=== PATIENT | male | born 1975 | race Caucasian/White ===

== ENCOUNTER 2021-05-27 02:54 | Emergency (ER) | payer SELFPAY ==
[~2021-05-27] VITALS: Ht 165.1 cm; Wt 67.7 kg
--- OUTSIDE RECORDS SUMMARY | 2021-05-27 02:59 | CCD ---
Author Author [facility] Organization [facility] Address Unknown Phone Unavailable Support Name Relationship Address Phone [employer] Next Of Kin [address] [facility] [place] [address] [place] Next Of Kin Unknown Unavailable [address] [place] [address] SELF EMPLOYED [place] [address] Unavailable PAMELA CANALES Next Of Kin [address] [place], [place] [id number] PAMELA CANALES ECON Unknown Unavailable PAMELA QUEZADA ECON [address] [address] Re-disclosure Warning The records that you are about to access may contain information from federally-assisted alcohol or drug abuse programs. If such information is present, then the following federally mandated warning applies: This information has been disclosed to you from records protected by federal confidentiality rules (42 CFR part 2). The federal rules prohibit you from making any further disclosure of this information unless further disclosure is expressly permitted by the written consent of the person to whom it pertains or as otherwise permitted by 42 CFR part 2. A general authorization for the release of medical or other information is NOT sufficient for this purpose. The Federal rules restrict any use of the information to criminally investigate or prosecute any alcohol or drug abuse patient.The records that you are about to access may contain highly sensitive health information, the redisclosure of which is protected by Article 27-F of the [facility] Public Health law. If you continue you may have access to information: Regarding HIV / AIDS; Provided by facilities licensed or operated by the [facility] Office of Mental Health; or Provided by the [facility] Office for People With Developmental Disabilities. If such information is present, then the following [facility] mandated warning applies: This information has been disclosed to you from confidential records which are protected by state law. State law prohibits you from making any further disclosure of this information without the specific written consent of the person to whom it pertains, or as otherwise permitted by law. Any unauthorized further disclosure in violation of state law may result in a fine or mcc sentence or both. A general authorization for the release of medical or other information is NOT sufficient authorization for further disc losure. Medications No Information Insurance Providers Payer name Policy type / Coverage type Policy ID Covered alliance party ID Covered alliance party's relationship to [place] Policy Elliott Plan Information [employer] [place] MED[place] [id number] 0 [id number] RAHEEL [id number] SP [id number] [place] Other 0 [id number] Self 0 [place] Other 0 [id number] Self 0 RAHEEL CARE HEA [id number] S [id number] RAHEEL CARE HEA [id number] S [id number] [place] Other 0 [id number] Self 0 SELF PAY UNAVAILABLE SP UNAVAILA BLE ID IDENTIFICATION [id number] Other Insurance [id number] [place] [employer] [id number] Commercial Insurance [id number] ID IDENTIFICATION [id number] Other Insurance [id number] Problems, Conditions, and Diagnoses No Information Surgeries/Procedures No Information Results ID Date Data Source 04/24/2021 12:00:00 AM EDT [facility] Name Value Range Interpretation Code Description Data Mini rce(s) Supporting Document(s) NAAT POSITIVE [facility] This lab was ordered by [facility] are and reported by [facility]. ID Date Data Source 06/14/2020 12:00:00 AM EST [facility] Name Value Range Interpretation Code Description Data Mini rce(s) Supporting Document(s) 2019 Novel Coronavirus RNA Negative [facility] This lab was ordered by [facility] are and reported by [facility]. Procedure Social History No Information
[2021-05-27] MEDS ORDERED: ONDANSETRON 4 MG TAB PO ONE (04:00)
[2021-05-27] MEDS ORDERED: MORPHINE 4 MG/ML 1ML VIAL/SYRINGE (J2270) IM ONE (04:00)
[2021-05-27] MEDS ORDERED: HYDR-3713 PO ×2 (04:08→04:13)
--- OUTSIDE RECORDS SUMMARY | 2021-05-27 04:21 | CCD ---
Author Author [facility] Organization [facility] Address Unknown Phone Unavailable Support Name Relationship Address Phone [employer] Next Of Kin [address] [place] [address] [place] Next Of Kin Unknown Unavailable [address] [place] [place] [address] SELF EMPLOYED [place] [address] Unavailable PAMELA CANALES Next Of Kin [address] [place], [place] [phone] PAMELA CANALES ECON Unknown Unavailable PAMELA QUEZADA ECON [address] [place] [address] Re-disclosure Warning The records that you are [...] is protected by Article 27-F of the [facility] Public Health law. If you continue you may have access to information: Regarding HIV / AIDS; Provided by facilities licensed or operated by the [facility] Office of Mental Health; or Provided by the [facility] Office for People With Developmental Disabilities. If such information is present, then the following [facility] mandated warning applies: This information has been [...] law may result in a fine or penitentiary sentence or both. A general authorization for the release of medical or other information is NOT sufficient authorization for further disc losure. Medications No Information Insurance Providers Payer name Policy type / Coverage type Policy ID Covered republican ID Covered republican's relationship to elliott Policy Elliott Plan Information [employer] [place] MEDICA[place] [id number] 0 [id number] RAHEEL [id number] SP [id number] [place] [facility] [place] Other 0 [id number] Self 0 [employer] [place] Other 0 [id number] Self 0 RAHEEL CARE HEA [id number] S [id number] RAHEEL CARE HEA [id number] S [id number] [place] Other 0 [id number] Self 0 SELF PAY UNAVAILABLE SP UNAVAILA BLE ID IDENTIFICATION [id number] Other Insurance [id number] [place] [facility] [id number] Commercial Insurance [id number] ID IDENTIFICATION [id number] Other Insurance [id number] Problems, Conditions, and Diagnoses No Information Surgeries/Procedures No Information Results ID Date Data Source [id number] 04/24/2021 12:00:00 AM EDT [facility] Name Value Range Interpretation Code Description Data Mini rce(s) Supporting Document(s) NAAT POSITIVE [facility] This lab was ordered by [facility] are and reported by [facility]. ID Date Data Source [id number] 06/14/2020 12:00:00 AM EST [facility] Name Value Range Interpretation Code Description Data Mini rce(s) Supporting Document(s) 2019 Novel Coronavirus RNA Negative [facility] This lab was ordered by [facility] are and reported by [facility]. Procedure Social History No Information
[2021-05-27 04:53] VITALS: BP 134/82
== END 2021-05-27 04:35 | disposition home or self-care (01) ==
LOC: M ED 02:54
DX: T23.202A Burn of second degree of left hand, unspecified site, initial encounter (principal); T31.0 Burns involving less than 10% of body surface; X16.XXXA Contact with hot heating appliances, radiators and pipes, initial encounter; Y92.099 Unspecified place in other non-institutional residence as the place of occurrence of the external cause; Y93.9 Activity, unspecified; Y99.9 Unspecified external cause status
CPT/HCPCS: 96372; 99282; J2270